=== PATIENT | female | born 1970 | race Caucasian/White ===

== ENCOUNTER 2020-03-05 12:45 | Outpatient (CLI) | payer BC | END 2020-03-05 23:59 | disposition home or self-care (01) | LOC: CFH 12:45 | PROVIDERS: ATTEND Specialist | DX: R92.1 Mammographic calcification found on diagnostic imaging of breast (principal); R92.8 Other abnormal and inconclusive findings on diagnostic imaging of breast | CPT/HCPCS: 76642; 77066; G0279 ==